=== PATIENT | female | born 2000 | race Caucasian/White ===

== ENCOUNTER 2023-06-02 16:37 | Outpatient (CLI) | payer MEDICAID, SELFPAY ==
[2023-06-02] VITALS (10 sets, daily range): BP systolic 101–121; BP diastolic 56–74; PULSE 83–103; BMI 32.4
== END 2023-06-02 19:07 | disposition home or self-care (01) ==
LOC: OPOB 16:37 → OBGYN 16:38
PROVIDERS: PCP Nurse Practitioner Family; Visit Provider Family Medicine
DX: O26.899 Other specified pregnancy related conditions, unspecified trimester (principal); Z3A.00 Weeks of gestation of pregnancy not specified; R10.9 Unspecified abdominal pain
CPT/HCPCS: 59025; 99211

== ENCOUNTER → 2023-06-16 14:17 | Outpatient (BNVA) | payer SELFPAY | PROVIDERS: PCP Nurse Practitioner Family; Visit Provider Obstetrics & Gynecology | DX: Z34.90 Encounter for supervision of normal pregnancy, unspecified, unspecified trimester (principal) | CPT/HCPCS: 81000 ==

== ENCOUNTER 2023-06-18 15:52 | Inpatient (IN) | payer MEDICAID, SELFPAY ==
[2023-06-18] VITALS (42 sets, daily range): BP systolic 83–144; BP diastolic 51–83; PULSE 74–108; RESP 15–17; TEMP 36.2–36.7; O2SAT 87–100; BMI 32.5
[2023-06-18] MEDS: oxytocin 30 UNIT/500 ML BAG IV (08:29)
[2023-06-18] MEDS: dextrose 5%-lactated ringers 1,000 ML 125 ML IV (08:29)
[2023-06-18 08:46] LABS: Basophils # 0.1 10^3/uL (0.0-0.1); Basophils % 0.6 %; Eosinophils # 0.2 10^3/uL (0.0-0.8); Eosinophils % 1.9 %; Hematocrit 34.4 % (36-47); Lymphocytes # 1.6 10^3/uL (0.8-4.8); Lymphocytes % 17.2 %; Mean Corpuscular HGB Conc 33.1 g/dL (30-55); Mean Corpuscular Hemoglobin 29.5 pg (27-33); Mean Corpuscular Volume 89.1 fl (85-98); Mean Platelet Volume 9.9 fL (7.4-10.4); Monocytes # 0.6 10^3/uL (0.2-0.9); Monocytes % 7.1 %; Neutrophils # 6.56 10^3/uL (1.8-7.7); Neutrophils % 72.8 %; Nucleated Red Blood Cells % 0 %; Platelet Count 329 10^3/cmm (157-399); Red Blood Count 3.86 10^6/uL (3.85-5.65); White Blood Count 9.01 10^3/uL (3.29-11.43)
--- NOTE | 2023-06-18 14:05 | P.ANESASSM_ITS ---
Pre-Anesthetic Assessment Height/Weight: Height 1.65 m Weight 88.904 kg Temp Pulse BP O2 Del Method 97.3 F L 74 115/75 Room Air 06/18/23 13:55 06/18/23 13:14 06/18/23 13:14 06/18/23 08:49 Epidural Familial anesthetic complications: None Was Beta Kacie taken within 24 hours: N/A Was Clonidine taken within 24 hours: N/A Social Tobacco 0.5 pack(s) per day Exam alert, oriented x 3, clear to auscultation bilaterally and regular rate & rhythm Airway Submandibular: within normal limits Cervical ROM: within normal limits Mallampati: Class II Dentition: chipped Comments: Comments: Poor dentition History/ROS No significant history except as noted and No significant complaints Pulmonary Asthma CV/HEM Leaky valve left None reported Hepatic None reported GI Gastroesophageal Reflux Disease (d/t ) Metabolic None reported Musc/skel Lower Back Pain Neuropsych Headache Anesthetic Plan ASA status: 3 Anesthesia: Anesthesia Evaluation, General and Regional (specify below) Risk of > 500 ml blood loss (7ml/kg in children): No Medications/Allergies Home Medications Medication Instructions Recorded Confirmed Last Taken Type No Known Home Medications 06/16/23 06/18/23 Unknown History Allergies Allergy/AdvReac Type Severity Reaction Status Date / Time fluticasone Allergy ALGY-Anaphy Verified 06/18/23 09:11 [From Advair Diskus] laxis ibuprofen Allergy ALGY-Anaphy Verified 06/18/23 09:11 laxis salmeterol Allergy ALGY-Anaphy Verified 06/18/23 09:11 [From Advair Diskus] laxis Current Medications Generic Name Dose Route Start Last Admin Trade Name Freq PRN Reason Stop Dose Admin Dextrose/Lactated Ringer's 1,000 mls @ 125 mls/hr 06/18/23 07:45 06/18/23 11:00 Dextrose 5%-Lactated Ringers IV 115 mls/hr .Q8H CARRILLO Infusion Oxytocin 30 unit in 500 mls @ 1 mls/hr 06/18/23 07:45 06/18/23 13:35 Pitocin IV 14 milliunit/min .Q24H CARRILLO 14 mls/hr Titration Protocol 1 MILLIUNIT/MIN PFSH Anesthesia Family History Grandmother Hypertension Diabetes Grandfather Hypertension Diabetes Family/Other Diabetes Female Reproductive History : 2 Data Anesthesia 06/18/23 08:00 Short CBC 06/18/23 Range/Units 08:00 WBC 9.01 (3.29-11.43) 10^3/uL Hgb 11.40 (11.27-16.99) g/dL Hct 34.4 L (36-47) % MCV 89.1 (85-98) fl Plt Count 329 (157-399) 10^3/cmm Neut % (Auto) 72.8 % Neut # (Auto) 6.56 (1.8-7.7) 10^3/uL Blood Bank 06/18/23 08:00 Blood Type A Positive Rho(D) Type Rh positive Antibody Screen Positive Cardiac Studies: 2 No Data to Display
[2023-06-18] MEDS: fentaNYL 50 mcg/mL INJ 2mL IVP ×4 (14:17→18:37)
[2023-06-18] MEDS: dextrose 5%-lactated ringers 1,000 ML 115 ML IV (15:41)
--- NOTE | 2023-06-18 16:15 | PM.OBGYHP ---
Providers/Chief Complaint Admitting Physician: Munir Justice MD Primary NURSE ANESTHESIA PROGRAM DIRECTOR: Munir Justice MD Primary Care Provider: DELANEY Aaron Chief Complaint: induction HPI NURSE ANESTHESIA PROGRAM DIRECTOR History of Present Illness 23 y.o. EDC June 13, 2023 By LMP September 06, 2022, c/w 8-week sono At 40 w 5 d Admitted today for induction of labor Patient transfer of care from outside clinic Had care records reviewed by me Had early dating ultrasound Normal labs, including 20-week anatomy scan, normal 1-h glucola and negative GBS No complications so far h/o x one No c/o today + active movements POBHx: x one, female, 3090 grams Present Details : 2 Para: 1 Labs Rubella: Immune RPR: Negative GBS: Negative Medications/Allergies Home Medications Medication Instructions Recorded Confirmed Last Taken Type No Known Home Medications 06/16/23 06/18/23 Unknown History Allergies Allergy/AdvReac Type Severity Reaction Status Date / Time fluticasone Allergy ALGY-Anaphy Verified 06/18/23 09:11 [From Advair Diskus] laxis ibuprofen Allergy ALGY-Anaphy Verified 06/18/23 09:11 laxis salmeterol Allergy ALGY-Anaphy Verified 06/18/23 09:11 [From Advair Diskus] laxis PFSH NURSE ANESTHESIA PROGRAM DIRECTOR PFSH: Family History Grandmother Hypertension Diabetes Grandfather Hypertension Diabetes Family/Other Diabetes History History History 2 Term 1 0 Miscarriages/Ectopic 0 Living Children 1 Care KESHA Calculator Estimated Delivery Date Method Current WG Current Estimate 06/13/23 LMP (Certain) 40w 6d Vitals/I&O/Wt Last Vital Signs Temp 97.5 F L 06/19/23 03:30 Pulse 78 06/19/23 03:30 Resp 18 06/19/23 03:30 BP 106/69 06/19/23 03:30 Pulse Ox 98 06/19/23 03:30 O2 Del Method Room Air 06/19/23 03:30 06/18/23 06/18/23 06/19/23 14:59 22:59 06:59 Intake Total 350.683 / 350.683 803.216 / 1153.899 Output Total 700 / 700 Balance 350.683 / 350.683 103.216 / 453.899 Weight last 48 hrs Weight 196 lb Physical Exam Narrative: Weight 195 lbs; 5?5? BP 124 / 68 Lungs: clear Cor: RRR Fundal ht: 38 cm , cephalic FHTs normal Cervix: 4 cm / 50% / -3 / posterior Ext: normal Data 06/18/23 08:00 Results Labs OB ([facility]): Blood Type A Positive 06/18/23 Antibody Screen Positive 06/18/23 Hct 34.4 % (36-47) L 06/18/23 Hgb 11.40 g/dL (11.27-16.99) 06/18/23 Rho(D) Type Rh positive 06/18/23 Plt Count 329 10^3/cmm (157-399) 06/18/23 OB Labs OB sono 11-07-22 8 w 3 d 01-23-23 19 w 3 d; WNL Blood type A + 1-h glucola 04-03-23 116 GBS 06-05-23 negative A&P Assessment and plan (1) Encounter for induction of labor: 40 w 5 d GBS negative h/o x one admitted for induction of labor plan start Pitocin Attestations Medical Necessity Statement*: patient at 40 w 5 d, admitted for induction of labor Coding Level of Care Code Acute Code for Chg Fwd Diagnoses Encounter for induction of labor Z34.90 Time Spent (min) 20
--- NOTE | 2023-06-18 18:10 | PM.OBGYPN ---
[employer] Subjective Subjective: Interval history: Fetus reassuring Having painful uterine contractions Cervix: 6 cm / 75% / -2 AROM, clear fluid Labor: Station: 0 Amniotic Membrane Status: Ruptured Monitor Mode: External Contraction Pattern: Regular Status: Category I Vitals/I&O/Wt Last Vital Signs Temp 97.5 F L 06/19/23 03:30 Pulse 78 06/19/23 03:30 Resp 18 06/19/23 03:30 BP 106/69 06/19/23 03:30 Pulse Ox 98 06/19/23 03:30 O2 Del Method Room Air 06/19/23 03:30 06/18/23 06/18/23 06/19/23 14:59 22:59 06:59 Intake Total 350.683 / 350.683 803.216 / 1153.899 Output Total 700 / 700 Balance 350.683 / 350.683 103.216 / 453.899 Weight last 48 hrs Weight 196 lb Data 06/18/23 08:00 A&P Assessment and plan (1) Encounter for induction of labor: Attestations Medical Necessity Statement*: patient at 40 w 5 d, admitted for induction of labor Coding Level of Care Code Acute Code for Chg Fwd Diagnoses Encounter for induction of labor Z34.90 Time Spent (min) 20
[2023-06-18] MEDS: ondansetron 2 mg/ML SDV 2 mL 4 MG IVP (18:16)
--- NOTE | 2023-06-18 19:50 | P.PN_ITS ---
[address] SQL DEVELOPER Subjective 2 Subjective: Interval history: DELIVERY NOTE Patient complete, fetus APOLINAR, at +2 station heart tracing with persistent rate at 80-90, even between uterine contractions Vacuum extractor applied Mild traction used through two uterine contractions Brought head to perineum + tight nuchal cord reduced Shoulders delivered easily Vigorous infant Cord gases and blood obtained No episiotomy or lacerations EBL: 300 cc No complications Labor: Station: 0 Amniotic Membrane Status: Ruptured Monitor Mode: External Contraction Pattern: Regular Status: Category I Vitals/I&O/Wt Last Vital Signs Temp 97.5 F L 06/19/23 03:30 Pulse 78 06/19/23 03:30 Resp 18 06/19/23 03:30 BP 106/69 06/19/23 03:30 Pulse Ox 98 06/19/23 03:30 O2 Del Method Room Air 06/19/23 03:30 06/18/23 06/18/23 06/19/23 14:59 22:59 06:59 Intake Total 350.683 / 350.683 803.216 / 1153.899 Output Total 700 / 700 Balance 350.683 / 350.683 103.216 / 453.899 Weight last 48 hrs Weight 196 lb Data 06/18/23 08:00 A&P Assessment and plan (1) Vaginal delivery: Attestations 2 Medical Necessity Statement*: patient at 40 w 5 d, admitted for induction of labor, s/p vacuum-assisted vaginal delivery Coding Level of Care Code Acute Code for Chg Fwd Diagnoses Vaginal delivery O80 Time Spent (min) 60
--- NOTE | 2023-06-18 19:55 | PM.DELIVERY ---
Delivery Note: Date of delivery: June 18, 2023 Pre-delivery diagnoses: 40 w 5 d induction of labor Post-delivery diagnoses: 40 w 5 d induction of labor vacuum-assisted vaginal delivery Procedure: induction of labor vacuum-assisted vaginal delivery Op report anesthesia: None Delivering Physician: Munir Justice MD Estimated blood loss (mL): 300 Findings: Patient complete, fetus APOLINAR, at +2 station heart tracing with persistent rate at 80-90, even between uterine contractions Vacuum extractor applied Mild traction used through two uterine contractions Brought head to perineum + tight nuchal cord reduced Shoulders delivered easily Vigorous infant Cord gases and blood obtained No episiotomy or lacerations EBL: 300 cc No complications Pre-Delivery Course: normal labor course Delivery: vacuum-assisted vaginal delivery Post-Delivery Status: good History History History 2 Term 1 0 Miscarriages/Ectopic 0 Living Children 1 A&P Assessment and plan (1) Vaginal delivery: care Coding Level of Care Code Acute Code for Chg Fwd Diagnoses Vaginal delivery O80 Time Spent (min) 60
[2023-06-18] MEDS: lanolin oint 7 gm 1 APPLIC TOPICAL (21:26)
[2023-06-18] MEDS: benzocaine-menthol 78 gm Canister 1 SPRAY TOPICAL (21:26)
[2023-06-18] MEDS: HYDROcodone-acetaminophen 5-325 mg Tablet PO (21:27)
[2023-06-19] VITALS (8 sets, daily range): BP systolic 95–110; BP diastolic 57–74; PULSE 71–91; RESP 15–18; TEMP 36.4–36.7; O2SAT 98
[2023-06-19 09:11] LABS: Hematocrit 33.4 % (36-47); Mean Corpuscular HGB Conc 33.5 g/dL (30-55); Mean Corpuscular Hemoglobin 29.7 pg (27-33); Mean Corpuscular Volume 88.6 fl (85-98); Mean Platelet Volume 10.2 fL (7.4-10.4); Platelet Count 316 10^3/cmm (157-399); Red Blood Count 3.77 10^6/uL (3.85-5.65); Red Cell Distribution Width 13.8 % (12.1-15.1); White Blood Count 10.65 10^3/uL (3.29-11.43)
--- NOTE | 2023-06-19 09:16 | P.PN_ITS ---
[employer]CHIT[employer] Subjective 2 Subjective: Interval history: no c/o no bleeding, pain eating, voiding, ambulating well caring for without any problems Labor: Station: 0 Amniotic Membrane Status: Ruptured Monitor Mode: External Contraction Pattern: Regular Status: Category I Vitals/I&O/Wt Last Vital Signs Temp 98.0 F 06/19/23 05:35 Pulse 82 06/19/23 05:35 Resp 16 06/19/23 05:35 BP 95/59 06/19/23 05:35 Pulse Ox 98 06/19/23 05:35 O2 Del Method Room Air 06/19/23 05:35 06/18/23 06/19/23 06/19/23 22:59 06:59 14:59 Intake Total 803.216 / 1153.899 Output Total 700 / 700 Balance 103.216 / 453.899 Weight last 48 hrs Weight 196 lb Physical Exam 2 Narrative: afebrile, VS normal comfortable, awake, alert Abd: soft, nontender. fundus firm Ext: no edema; nontender Data 06/19/23 08:30 A&P Assessment and plan (1) Vaginal delivery: PPD #1 vacuum-assisted vaginal delivery doing well discharge to home today instructions and precautions given call/return if fever, chills, headache, blurry vision, nausea, vomiting, abdominal pain; vaginal bleeding or discharge; shortness of breath, chest pain, leg pains or swelling; inability to void, perineal pain or swelling; feelings of depression or mood changes; thoughts of suicide or harming others; inability to care for baby. f/u in 6 weeks or PRN Attestations 2 Medical Necessity Statement*: patient s/p vaginal delivery, plan discharge to home today Coding Level of Care Code Acute Code for Chg Fwd Diagnoses Vaginal delivery O80 Time Spent (min) 20
--- NOTE | 2023-06-19 09:18 | PM.OBGYDC ---
Discharge Providers TYPEWRITER RIBBON WINDER Date of Admission: 06/18/23 15:52 Date of Discharge: 06/19/23 Attending Provider at Admission: Munir Justice MD Attending Provider at Discharge: Munir Justice MD Consults: none Primary TYPEWRITER RIBBON WINDER: Munir Justice MD Primary Care Provider: DELANEY Aaron Diagnoses at Discharge Discharge Diagnosis (1) Vaginal delivery: Details from hospital stay: patient admitted at 40 w 5 d for induction of labor normal labor progress Vacuum-assisted vaginal delivery done without any complications had normal and uneventful course discharged to home on PPD #1 Status: Acute Reason for Visit Reason for Visit: induction Brief History: 23 y.o. no complications admitted at 40 w 5 d for induction of labor Hospital Course Hospital Course patient admitted at 40 w 5 d for induction of labor normal labor progress Vacuum-assisted vaginal delivery done without any complications had normal and uneventful course discharged to home on PPD #1 Information Peripartum Data: Delivery Method: Vaginal Laceration description: None Episiotomy description: None complications: none Physical Exam Narrative: afebrile, VS normal comfortable, awake, alert Abd: soft, nontender. fundus firm Ext: no edema; nontender History History History 2 Term 1 0 Miscarriages/Ectopic 0 Living Children 1 Discharge Data Studies Completed and Pending Pending at discharge Category Date Time Status Antibody Identification Routine Lab 06/18/23 08:00 Results Leukocyte Reduced RBC Routine Lab 06/18/23 08:00 Results Retype for Patiets ABO/Rh Routine Lab 06/18/23 10:00 Ordered Type and Screen Routine Lab 06/18/23 08:00 Results Laboratory Results WBC 10.65 10^3/uL (3.29-11.43) 06/19/23 08:30 RBC 3.77 10^6/uL (3.85-5.65) L 06/19/23 08:30 Hgb 11.20 g/dL (11.27-16.99) L 06/19/23 08:30 Hct 33.4 % (36-47) L 06/19/23 08:30 MCV 88.6 fl (85-98) 06/19/23 08:30 MCH 29.7 pg (27-33) 06/19/23 08:30 MCHC 33.5 g/dL (30-55) 06/19/23 08:30 RDW 13.8 % (12.1-15.1) 06/19/23 08:30 Plt Count 316 10^3/cmm (157-399) 06/19/23 08:30 MPV 10.2 fL (7.4-10.4) 06/19/23 08:30 Neut % (Auto) 72.8 % 06/18/23 08:00 Lymph % (Auto) 17.2 % 06/18/23 08:00 Person % (Auto) 7.1 % 06/18/23 08:00 Eos % (Auto) 1.9 % 06/18/23 08:00 Baso % (Auto) 0.6 % 06/18/23 08:00 Neut # (Auto) 6.56 10^3/uL (1.8-7.7) 06/18/23 08:00 Lymph # (Auto) 1.6 10^3/uL (0.8-4.8) 06/18/23 08:00 Person # (Auto) 0.6 10^3/uL (0.2-0.9) 06/18/23 08:00 Eos # (Auto) 0.2 10^3/uL (0.0-0.8) 06/18/23 08:00 Baso # (Auto) 0.1 10^3/uL (0.0-0.1) 06/18/23 08:00 Nucleated RBC % (auto) 0 % 06/18/23 08:00 Nucleated RBCs # 0.0 /100WBC 06/18/23 08:00 Blood Type A Positive 06/18/23 08:00 Rho(D) Type Rh positive 06/18/23 08:00 Antibody Screen Positive 06/18/23 08:00 Antibody Identification Anti-Cadence 06/18/23 08:00 Crossmatch See Detail 06/18/23 08:00 Procedures Performed induction of labor vacuum-assisted vaginal delivery Vitals Last Vital Signs Temp 98.0 F 06/19/23 05:35 Pulse 82 06/19/23 05:35 Resp 16 06/19/23 05:35 BP 95/59 06/19/23 05:35 Pulse Ox 98 06/19/23 05:35 O2 Del Method Room Air 06/19/23 05:35 Results Labs OB ([facility]): Blood Type A Positive 06/18/23 Antibody Screen Positive 06/18/23 Hct 33.4 % (36-47) L 06/19/23 Hgb 11.20 g/dL (11.27-16.99) L 06/19/23 Rho(D) Type Rh positive 06/18/23 Plt Count 316 10^3/cmm (157-399) 06/19/23 Discharge Plan Discharge Patient Disposition: Home Condition: Stable Prescriptions: No Action No Known Home Medications Discharge Orders: Discharge Order (Routine); Ordered 06/19/23 Ordered By: Munir Justice Discharge Diet: Usual diet Discharge Activity: Resume usual activity Patient Instructions: Opioid Safety Discharge Attestations TYPEWRITER RIBB[employer] WINDER Time Spent in Discharge Care*: less than 30 min Coding Level of Care Code Acute Code for Chg Fwd Diagnoses Vaginal delivery O80 Time Spent (min) 20
[2023-06-19] MEDS: prenatal vitamin Capsule 1 CAP PO (09:32)
[2023-06-19] MEDS: docusate sodium 100 mg Capsule PO (09:32)
[2023-06-19] MEDS: acetaminophen 325 mg Tablet 650 MG PO (09:32)
== END 2023-06-19 21:28 | disposition home or self-care (01) | DRG 807 ==
LOC: OPOB 15:53 → OBGYN 15:53
PROVIDERS: Admitting Provider Obstetrics & Gynecology; PCP Nurse Practitioner Family; Visit Provider Obstetrics & Gynecology
DX: O48.0 Post-term pregnancy (principal); Z37.0 Single live birth; Z3A.40 40 weeks gestation of pregnancy; O69.1XX0 Labor and delivery complicated by cord around neck, with compression, not applicable or unspecified; O99.62 Diseases of the digestive system complicating childbirth; K21.9 Gastro-esophageal reflux disease without esophagitis
CPT/HCPCS: 36415; 59409; 80503; 85025; 85027; 86850; 86870; 86900; 86920; 96374; 96376; J2405; J2590; J3010; J7121